=== PATIENT | female | born 1960 | race Caucasian/White ===

== ENCOUNTER → 2021-05-06 | Day surgery (SDC) | payer OTHER ==
[~2021-05-06] VITALS: Ht 160 cm; Wt 136.2 kg
[~2021-05-06] MED LIST: DIOVAN80 MG PO; FLEXERIL10 MG PO; HCTZ25 MG PO; MEDROL 4MG DOSEP4 MG PO; PERCOCET 5-3251 EACH PO; PROTONIX40 MG PO; SYNTHROID75 MCG PO; TOPROL XL 25MG25 MG PO; VENTOLIN HFA IN18 GM INH; XARELTO10 MG PO
[2021-05-06 07:07] LABS: HCT 43.7 % (37.0-47.0); HGB 14.1 g/dl (12.5-16.0); MCH 27.5 pg (25.0-31.0); MCHC 32.3 g/dL (32.0-36.0); MCV 85.2 fL (78.0-100.0); MPV 10.7 fL (6.0-9.5); RBC 5.13 M/uL (4.20-5.40); RDW 13.1 % (11.5-14.0); WBC 5.9 K/uL (4.0-10.5)
[2021-05-06 07:14] LABS: ALBUMIN 3.5 g/dL (3.4-5.0); BILIRUBIN - TOTAL 0.4 mg/dL (0.2-1.0); BUN/CREAT RATIO (CALC) 16.9 RATIO; CREATININE 0.83 mg/dL (0.51-0.95); GLOBULIN (CALCULATION) 3.6 g/dL; POTASSIUM 3.6 mmol/L (3.5-5.1); TOTAL PROTEIN 7.1 g/dL (6.4-8.2)
== END | disposition home or self-care (01) ==
LOC: FAS 06:04
PROVIDERS: Orthopaedic Surgery
DX: G56.03 Carpal tunnel syndrome, bilateral upper limbs (principal)
CPT/HCPCS: 36415; 80053; 93005; J1100; J1885; J2250; J2405; J2704; J3010; J7120

== ENCOUNTER → 2021-06-17 | Day surgery (SDC) | payer OTHER ==
[~2021-06-17] VITALS: Ht 160 cm; Wt 136.2 kg
[2021-06-17 12:48] LABS: BUN/CREAT RATIO (CALC) 19.2 RATIO; CREATININE 0.73 mg/dL (0.51-0.95); POTASSIUM 3.8 mmol/L (3.5-5.1)
== END | disposition home or self-care (01) ==
LOC: FAS 11:15
PROVIDERS: Anesthesiology
DX: G56.02 Carpal tunnel syndrome, left upper limb (principal); M65.342 Trigger finger, left ring finger; Z88.5 Allergy status to narcotic agent; Z88.1 Allergy status to other antibiotic agents; E03.9 Hypothyroidism, unspecified; I10 Essential (primary) hypertension; G47.30 Sleep apnea, unspecified
CPT/HCPCS: 36415; 80048; J1170; J2405; J2704; J3010

== ENCOUNTER 2022-02-28 17:03 | Emergency (ER) | payer OTHER ==
[2022-02-28 18:21] LABS: BASOPHIL 0.4 % (0-2); EOSINOPHIL 1.5 % (0-5); HCT 45.5 % (37.0-47.0); HGB 14.8 g/dl (12.5-16.0); LYMPHOCYTE 23.2 % (15-48); MCHC 32.5 g/dL (32.0-36.0); MCV 86.2 fL (78.0-100.0); MONOCYTE 7.5 % (0-12); MPV 10.4 fL (6.0-9.5); NEUTROPHIL 67.2 % (41-80); NRBC 0; PLT 240 K/uL (150-400); RBC 5.28 M/uL (4.20-5.40); RDW 13.3 % (11.5-14.0)
[2022-02-28 18:40] LABS: ALBUMIN 3.4 g/dL (3.4-5.0); BILIRUBIN - TOTAL 0.5 mg/dL (0.2-1.0); BUN/CREAT RATIO (CALC) 16.7 RATIO; CREATININE 0.78 mg/dL (0.51-0.95); GLOBULIN (CALCULATION) 3.5 g/dL; POTASSIUM 3.5 mmol/L (3.5-5.1); TOTAL PROTEIN 6.9 g/dL (6.4-8.2)
[2022-02-28 19:02] LABS: BILIRUBIN NEGATIVE (NEGATIVE); BLOOD NEGATIVE Ery/uL (NEGATIVE); CLARITY CLEAR (CLEAR); COLOR YELLOW (YELLOW); GLUCOSE (U) NORMAL (NORMAL); LEUKOCYTES NEGATIVE Leu/uL (NEGATIVE); NITRITE NEGATIVE (NEGATIVE); PROTEIN NEGATIVE (NEGATIVE); SPECIFIC GRAVITY 1.025 (1.001-1.030); UROBILINOGEN 0.2 mg/dL (0.2-1.0)
== END 2022-02-28 19:27 | disposition home or self-care (01) ==
LOC: FER 17:03
PROVIDERS: Emergency Medicine
DX: R00.2 Palpitations (principal); I10 Essential (primary) hypertension; I48.91 Unspecified atrial fibrillation; Z79.01 Long term (current) use of anticoagulants; Z79.899 Other long term (current) drug therapy; Z88.5 Allergy status to narcotic agent; Z91.040 Latex allergy status
CPT/HCPCS: 36415; 71045; 80053; 81003; 83735; 84443; 84484; 85025; 93005